=== PATIENT | female | born 1930 | race Caucasian/White ===

== ENCOUNTER 2018-08-03 11:39 | Day surgery (SDC) | payer MEDICARE, BC ==
[2018-08-03] MEDS ORDERED: Depo-Medrol 40 MG/ML IM ONE (11:40)
[2018-08-03] MEDS ORDERED: Xylocaine 1% Vial 30 ML PF IJ ONE (11:40)
[2018-08-03] MEDS ORDERED: Sodium Chloride 0.9(Preservative Free) 10 ML IJ ONE (11:40)
[2018-08-03] MEDS ORDERED: Lactated Ringers 1,000 ML IV ONE (12:06)
--- NOTE | 2018-08-03 14:47 | XRAY ---
Indication: Right L4-S1 LENORA. Intraoperative fluoroscopy was provided for 32 seconds. 3 digital spot images submitted for interpretation demonstrates posterior spinal needle tip projecting over the expected course the right L5 nerve root. Small amount of contrast injected for needle tip placement. Correlate with intraoperative findings/report. Incidental L4 kyphoplasty.
--- NOTE | 2018-08-03 15:19 | XRAY ---
32 seconds fluoroscopy time in surgery for right L4-S1 LENORA.
== END 2018-08-03 14:16 | disposition home or self-care (01) ==
LOC: SDC-PAIN 11:39
PROVIDERS: ATTEND Psychiatry & Neurology Pain Medicine
DX: M54.16 Radiculopathy, lumbar region (principal); I10 Essential (primary) hypertension; M19.90 Unspecified osteoarthritis, unspecified site; I48.91 Unspecified atrial fibrillation; Z79.899 Other long term (current) drug therapy; Z79.01 Long term (current) use of anticoagulants
CPT/HCPCS: 64483; 64484; 72020; 77003; J1030; J2001

== ENCOUNTER 2018-09-28 15:58 | Day surgery (SDC) | payer MEDICARE, BC ==
[2018-09-28] MEDS ORDERED: Depo-Medrol 40 MG/ML IM ONE (15:59)
[2018-09-28] MEDS ORDERED: Xylocaine 1% Vial 30 ML PF IJ ONE (15:59)
[2018-09-28] MEDS ORDERED: Marcaine 0.5% SDV 10 ML IJ ONE (15:59)
--- NOTE | 2018-09-29 08:37 | XRAY ---
Indication: Right knee injection. Intraoperative fluoroscopy was provided for 6 seconds. Single digital spot image submitted for interpretation demonstrates needle tip projecting over the right femoral intercondylar notch. Small amount contrast injected for needle tip placement. Correlate with intraoperative findings/report.
--- NOTE | 2018-09-29 08:40 | XRAY ---
6 seconds of fluoroscopy was used in surgery for a right intra-articular knee injection.
== END 2018-09-28 17:55 | disposition home or self-care (01) ==
LOC: SDC-PAIN 15:58
PROVIDERS: ATTEND Psychiatry & Neurology Pain Medicine
DX: M17.0 Bilateral primary osteoarthritis of knee (principal); Z79.01 Long term (current) use of anticoagulants; Z79.899 Other long term (current) drug therapy; I10 Essential (primary) hypertension; M19.90 Unspecified osteoarthritis, unspecified site; I48.91 Unspecified atrial fibrillation
CPT/HCPCS: 20610; 73560; 77002; J1030; J2001; Q9967

== ENCOUNTER 2018-10-26 14:06 | Day surgery (SDC) | payer MEDICARE, BC ==
[2018-10-26] MEDS ORDERED: Sodium Chloride 0.9(Preservative Free) 10 ML IJ ONE (14:07)
[2018-10-26] MEDS ORDERED: Xylocaine 1% Vial 30 ML PF IJ ONE (14:07)
[2018-10-26] MEDS ORDERED: Depo-Medrol 40 MG/ML IM ONE (14:07)
--- NOTE | 2018-10-26 16:36 | XRAY ---
Indication: L5-S1 LENORA. Intraoperative fluoroscopy was provided for 21 seconds. Single lateral digital spot image submitted for interpretation demonstrates posterior needle tip just posterior to the last lumbar segment. Small amount of contrast injected for needle tip placement. Correlate with intraoperative findings/report.
--- NOTE | 2018-10-26 16:46 | XRAY ---
21 seconds of fluoroscopy was used in surgery for L5-S1 LENORA.
== END 2018-10-26 16:11 | disposition home or self-care (01) ==
LOC: SDC-PAIN 14:06
PROVIDERS: ATTEND Psychiatry & Neurology Pain Medicine
DX: M54.16 Radiculopathy, lumbar region (principal); I10 Essential (primary) hypertension; I48.91 Unspecified atrial fibrillation; M19.90 Unspecified osteoarthritis, unspecified site; Z79.899 Other long term (current) drug therapy
CPT/HCPCS: 62323; 72100; 77003; J1030; J2001; Q9966

== ENCOUNTER 2018-11-30 13:10 | Day surgery (SDC) | payer MEDICARE, BC ==
[2018-11-30] MEDS ORDERED: Xylocaine 1% Vial 30 ML PF IJ ONE (13:11)
[2018-11-30] MEDS ORDERED: Depo-Medrol 40 MG/ML IM ONE (13:11)
[2018-11-30] MEDS ORDERED: Xylocaine-Mpf 2% 5 Ml Vial IJ ONE (13:11)
--- NOTE | 2018-11-30 15:12 | XRAY ---
10 seconds fluoroscopy time in surgery for bilateral L4-S1 MBB.
--- NOTE | 2018-11-30 15:12 | XRAY ---
Indication: Bilateral L4-S1 MBB. Intraoperative fluoroscopy was provided for 10 seconds. Single digital spot image submitted for interpretation demonstrates posterior needle tips projecting over the expected course of the left and right L4-S1 nerve roots. Correlate with intraoperative findings/report. Incidental L4 kyphoplasty.
== END 2018-11-30 14:27 | disposition home or self-care (01) ==
LOC: SDC-PAIN 13:10
PROVIDERS: ATTEND Psychiatry & Neurology Pain Medicine
DX: M47.816 Spondylosis without myelopathy or radiculopathy, lumbar region (principal); I10 Essential (primary) hypertension; I48.91 Unspecified atrial fibrillation; M19.90 Unspecified osteoarthritis, unspecified site
CPT/HCPCS: 64493; 64494; 72020; 77002; J1030; J2001

== ENCOUNTER 2019-01-11 14:49 | Day surgery (SDC) | payer MEDICARE, BC ==
[2019-01-11] MEDS ORDERED: Depo-Medrol 40 MG/ML IM ONE (14:50)
[2019-01-11] MEDS ORDERED: Marcaine 0.5% SDV 10 ML IJ ONE (14:50)
[2019-01-11] MEDS ORDERED: Xylocaine 1% Vial 30 ML PF IJ ONE (14:50)
--- NOTE | 2019-01-11 16:51 | XRAY ---
Indication: Bilateral L4-S1 MBB. Intraoperative fluoroscopy was provided for 20 seconds. 2 digital spot images submitted for interpretation demonstrates posterior needle tips projecting over the expected course of the left and right L4-S1 nerve roots. Correlate with intraoperative findings/report. Incidental L4 kyphoplasty.
--- NOTE | 2019-01-11 16:53 | XRAY ---
20 seconds fluoroscopy time in surgery for bilateral L4-S1 MBB.
== END 2019-01-11 16:15 | disposition home or self-care (01) ==
LOC: SDC-PAIN 14:49
PROVIDERS: ATTEND Psychiatry & Neurology Pain Medicine
DX: M47.816 Spondylosis without myelopathy or radiculopathy, lumbar region (principal); I10 Essential (primary) hypertension; I48.91 Unspecified atrial fibrillation; Z79.01 Long term (current) use of anticoagulants; Z79.899 Other long term (current) drug therapy
CPT/HCPCS: 64493; 64494; 72020; 77002; J1030; J2001

== ENCOUNTER 2019-02-01 14:13 | Day surgery (SDC) | payer MEDICARE, BC ==
[2019-02-01] MEDS ORDERED: LIDOCAINE HCL 2% 100 MG/5 ML IJ ONE (14:14)
[2019-02-01] MEDS ORDERED: Xylocaine 1% Vial 30 ML PF IJ ONE (14:14)
[2019-02-01] MEDS ORDERED: Depo-Medrol 40 MG/ML IM ONE (14:14)
--- NOTE | 2019-02-01 16:06 | XRAY ---
Indication: Right L4-S1 RFA. Intraoperative fluoroscopy was provided for 19 seconds. 2 digital spot images submitted for interpretation demonstrates posterior needle tips projecting over the expected course of the right L4-S1 nerve roots. Correlate with intraoperative findings/report. Incidental L4 kyphoplasty.
--- NOTE | 2019-02-01 16:11 | XRAY ---
19 seconds fluoroscopy time in surgery for right L4-S1 RFA.
== END 2019-02-01 15:37 | disposition home or self-care (01) ==
LOC: SDC-PAIN 14:13
PROVIDERS: ATTEND Psychiatry & Neurology Pain Medicine
DX: M47.816 Spondylosis without myelopathy or radiculopathy, lumbar region (principal); I48.91 Unspecified atrial fibrillation; I10 Essential (primary) hypertension; Z79.899 Other long term (current) drug therapy
CPT/HCPCS: 64635; 64636; 72100; 77002; J1030; J2001

== ENCOUNTER 2019-03-01 14:15 | Day surgery (SDC) | payer MEDICARE, BC ==
[2019-03-01] MEDS ORDERED: Depo-Medrol 40 MG/ML IM ONE (14:16)
[2019-03-01] MEDS ORDERED: Xylocaine 1% Vial 30 ML PF IJ ONE (14:16)
[2019-03-01] MEDS ORDERED: Marcaine 0.5% SDV 10 ML IJ ONE (14:16)
--- NOTE | 2019-03-01 17:06 | XRAY ---
Indication: Left L4-S1 RFA. Intraoperative fluoroscopy was provided for 26 seconds. 3 digital spot images submitted for interpretation demonstrates posterior needle tips projecting over the expected course of the left L4-S1 nerve roots. Correlate with intraoperative findings/report. Incidental L4 kyphoplasty.
--- NOTE | 2019-03-01 17:16 | XRAY ---
26 seconds fluoroscopy time in surgery for left L4-S1 RFA.
== END 2019-03-01 17:04 | disposition home or self-care (01) ==
LOC: SDC-PAIN 14:15
PROVIDERS: ATTEND Psychiatry & Neurology Pain Medicine
DX: M47.816 Spondylosis without myelopathy or radiculopathy, lumbar region (principal); I10 Essential (primary) hypertension; I48.91 Unspecified atrial fibrillation; Z79.01 Long term (current) use of anticoagulants; Z79.899 Other long term (current) drug therapy
CPT/HCPCS: 72100; 77002; J1030; J2001